=== PATIENT | male | born 1990 | race Caucasian/White ===

== ENCOUNTER 2023-06-09 21:33 | Emergency (ER) | payer OTHER, SELFPAY ==
[2023-06-09 21:38] VITALS: BP 115/74; PULSE 62; RESP 16; TEMP 36.7; O2SAT 97; BMI 33.9
[2023-06-09 22:01] LABS: Internal Control Within Normal Limits; Strep A Antigen Screen Negative
[2023-06-09 22:03] LABS: SARS-CoV-2 Ag NEGATIVE (NEGATIVE)
[2023-06-09 22:40] VITALS: BP 123/76; PULSE 67; RESP 16; TEMP 37.1; O2SAT 96
--- NOTE | 2023-06-09 22:55 | ED.URI1 ---
HPI - URI/Sore Throat General Chief Complaint: Upper Respiratory Infection Stated Complaint: FEVER, SORE THROAT Time Seen by Provider: 06/09/23 22:55 Source: patient History of Present Illness HPI Narrative: Patient presents to emergency department complaining of sore throat. Patient states on his throat started to bother him with the typical. He had nasal congestion and a fever. He had myalgias and today he felt like it was painful to swallow. He had to miss work yesterday and today. He denies any nausea, vomiting, or diarrhea. Denies any chest pain, shortness of breath. He has cough which is nonproductive. Related Data Previous Rx's Medication Instructions Recorded fluticasone propionate 50 1 spray intranasal DAILY PRN 06/09/23 mcg/actuation nasal allergy symptoms #16 grams spray,suspension (Flonase Allergy Relief) loratadine 5 mg-pseudoephedrine ER 1 tab PO DAILY PRN nasal 06/09/23 120 mg tablet,extended congestion #10 tabs release,12hr (Claritin-D 12 Hour) Allergies Allergy/AdvReac Type Severity Reaction Status Date / Time IV Contrast Allergy Severe Uncoded 06/09/23 21:37 Review of Systems ROS Status of ROS 10 or more systems reviewed and unremarkable except as noted in history and below Exam Narrative Exam Narrative: Nurses notes and vital signs reviewed and patient is not hypoxic. General: Nontoxic, Well-appearing and in no apparent distress. Skin: Warm, dry, no pallor noted. No Rash Head: Normocephalic, atraumatic. Neck: Supple, non-tender. Eye: Pupils are equal, round and EOMI. No scleral icterus. Ears, Nose, Mouth, and Throat: TM clear, no posterior oropharynx erythema, Postnasal drip noted, mild nasal mucosal hypertrophy, uvula is mid-line Oral mucosa is moist Cardiovascular: Regular Rate and Rhythm without murmur, gallop or rub. Respiratory: No accessory muscle use or respiratory distress. Lungs are clear to auscultation, no wheezing, rales or rhonchi Chest Wall: no tenderness Back: No midline thoracic or lumbar vertebral tenderness. No CVA tenderness Musculoskeletal: normal ROM, no calf or popliteal tenderness, no lower extremity edema/swelling GI: Abdomen is soft, non-distended. Normal bowel sounds. No masses appreciated. No tenderness to palpation. No rebound, guarding, or rigidity noted. Neurological: A&O x4. No cranial nerve dysfunction observed. No truncal ataxia. Moves all extremities. Sensation intact. Psychiatric: Cooperative and interactive. Normal mood and affect. Constitutional Vital Signs, click to edit/add: Last Vital Signs Temp 98.7 F 06/09/23 22:40 Pulse 67 06/09/23 22:40 Resp 16 06/09/23 22:40 BP 123/76 06/09/23 22:40 Pulse Ox 96 06/09/23 22:40 O2 Del Method Room Air 06/09/23 21:48 Course Vital Signs Vital signs: Vital Signs Temperature 98.1 F 06/09/23 21:38 Pulse Rate 62 06/09/23 21:38 Respiratory Rate 16 06/09/23 21:38 Blood Pressure 115/74 06/09/23 21:38 Pulse Oximetry 97 06/09/23 21:38 Oxygen Delivery Method Room Air 06/09/23 21:38 Temperature 98.7 F 06/09/23 22:40 Pulse Rate 67 06/09/23 22:40 Respiratory Rate 16 06/09/23 22:40 Blood Pressure 123/76 06/09/23 22:40 Pulse Oximetry 96 06/09/23 22:40 Oxygen Delivery Method Room Air 06/09/23 21:48 MDM - URI/Sore Throat MDM Narrative Medical decision making narrative: Strep testing: The 19th has to are negative. All results were discussed with patient. Patient is advised to take Flonase, and Claritin decongestant. His nontoxic. Stable for outpatient follow-up and treatment. At this time the patient is without objective evidence of an acute process requiring hospitalization or inpatient management. The patient has remained hemodynamically stable. No additional indication for emergent studies at this time. I answered all questions. Discussed discharge instructions including standard anticipatory guidance and what should prompt a return to the emergency department, including if they get worse are not getting better or develops any new or concerning symptoms. I've given them specific time frame in which to follow-up, and who to follow-up with. The patient demonstrates understanding. Patient is nontoxic and stable for discharge with outpatient follow-up. This note was created with the assistance of a speech recognition program. Although the intention is to generate documents that actually reflects the content of the visit, no guarantees can be provided that every mistake has been identified and corrected by editing. Differential Diagnosis Differential diagnosis: Likely upper respiratory infection, otitis media, sinusitis, viral infection, bronchitis, influenza and pharyngitis Lab Data Attestation: I reviewed the patient's lab results. Labs: Lab Results 06/09/23 Range/Units 21:43 SARS-CoV-2 (PCR) Negative (NEGATIVE) SARS-CoV-2 RNA (SAUNDRA) Not detected (NOT DETECTE) Streptococcus Screen Negative Discharge Plan Discharge Chief Complaint: Upper Respiratory Infection Clinical Impression: Upper respiratory infection Patient Disposition: Home, Self-Care Time of Disposition Decision: 23:21 Condition: Good Mode of Transportation: Private Vehicle Prescriptions / Home Meds: New fluticasone propionate [Flonase Allergy Relief] 50 mcg/actuation spray,suspension 1 spray intranasal DAILY PRN (Reason: allergy symptoms) Qty: 16 0RF Rx Instructions: administer into each nostril Claritin-D 12 Hour 5-120 mg tablet extended release 12 hr 1 tab PO DAILY PRN (Reason: nasal congestion) Qty: 10 0RF Instructions: Pharyngitis (ED), Upper Respiratory Infection (ED) Stand Alone Forms: Portal Instructions Referrals: Physician,Non-Staff, MD [Primary Care Provider] - 1 week Discharge Date/Time: 06/09/23 23:30
[2023-06-10 14:11] LABS: SARS-CoV-2 NAA NOT DETECTED (NOT DETECTE)
--- NOTE | 2023-06-16 09:07 | PC.NURSE ---
06/16/23 no answer wrong phone number with pt. called script into pharmacy for + step A culture reviewed and ordered 06/13/23 by Katiana Davis RN
== END 2023-06-09 23:30 | disposition home or self-care (01) ==
PROVIDERS: Emergency Provider Emergency Medicine
DX: J06.9 Acute upper respiratory infection, unspecified (principal); Z20.822 Contact with and (suspected) exposure to COVID-19
CPT/HCPCS: 87070; 87150; 87635; 87811; 87880; 99283; U0003

== ENCOUNTER 2023-10-06 17:00 | Emergency (ER) | payer OTHER, SELFPAY ==
[2023-10-06 17:06] VITALS: BP 122/60; PULSE 83; RESP 16; TEMP 37.1; O2SAT 95; BMI 32.5
[2023-10-06 17:58] LABS: Influenza Virus A Antigen Negative; Influenza Virus B Antigen Negative; Internal Control Within Normal Limits
[2023-10-06 18:25] LABS: SARS-CoV-2 Ag NEGATIVE (NEGATIVE)
[2023-10-06 18:59] VITALS: BP 134/73; PULSE 82; RESP 18; TEMP 37.3; O2SAT 99
--- NOTE | 2023-10-06 19:09 | ED_ITS ---
HPI - URI/Sore Throat General Chief Complaint: Upper Respiratory Infection Stated Complaint: headache/body ache/nausea Time Seen by Provider: 10/06/23 17:12 Source: patient Limitations: no limitations History of Present Illness HPI Narrative: Patient is a 33-year-old male presents to the emergency department for 2-day history of flulike illness. He reports mild cough and congestion, diffuse bodyaches and headache, nausea with no vomiting or diarrhea. He has not had any objective fevers. His family member was sick with influenza and a double ear infection . He has not had any medications prior to arrival. He states he came to the emergency department because he does not think he can go to work today and needs a note. Related Data Previous Rx's Medication Instructions Recorded fluticasone propionate 50 1 spray intranasal DAILY PRN 06/09/23 mcg/actuation nasal allergy symptoms #16 grams spray,suspension (Flonase Allergy Relief) loratadine 5 mg-pseudoephedrine ER 1 tab PO DAILY PRN nasal 06/09/23 120 mg tablet,extended congestion #10 tabs release,12hr (Claritin-D 12 Hour) [id number] 10 ml PO Q6H PRN cold symptoms 10/06/23 2 mg-30 mg-10 mg/5 mL oral syrup #200 mL (Bromfed DM) ondansetron 4 mg disintegrating 4 mg PO Q6H PRN nausea and 10/06/23 tablet vomiting #12 tabs Allergies Allergy/AdvReac Type Severity Reaction Status Date / Time IV Contrast Allergy Severe Uncoded 06/09/23 21:37 Review of Systems ROS Constitutional Denies: fever or chills Ears, nose, mouth, and throat Reports: nasal congestion; Denies: throat pain Cardiovascular Denies: chest pain Respiratory Reports: cough; Denies: shortness of breath Gastrointestinal Reports: nausea; Denies: vomiting or diarrhea Musculoskeletal Denies: back pain Integumentary/Breast Denies: rash Neurological Reports: headache PFSH PFSH Social History Smoking status: Current every day smoker Exam Narrative Exam Narrative: Gen.: Awake, alert, in no distress Head: Normocephalic, atraumatic ENT: Moist mucous membranes, bilateral TMs clear, cobblestoning noted in the posterior pharynx with no pharyngeal erythema or tonsillar edema. Airway widely open and patent. No trismus or drooling Respiratory: No respiratory distress, lungs clear bilaterally, no wheezing or rhonchi Cardio: Regular rate and rhythm Extremities: Moves extremities equally Psych: Normal mood and affect Neuro: No focal neuro deficit Skin: Warm, dry, intact Constitutional Vital Signs, click to edit/add: Last Vital Signs Temp 99.2 F 10/06/23 18:59 Pulse 82 10/06/23 18:59 Resp 18 10/06/23 18:59 BP 134/73 10/06/23 18:59 Pulse Ox 99 10/06/23 18:59 O2 Del Method Room Air 10/06/23 17:06 Course Vital Signs Vital signs: Vital Signs Temperature 98.8 F 10/06/23 17:06 Pulse Rate 83 10/06/23 17:06 Respiratory Rate 16 10/06/23 17:06 Blood Pressure 122/60 10/06/23 17:06 Pulse Oximetry 95 10/06/23 17:06 Oxygen Delivery Method Room Air 10/06/23 17:06 Temperature 99.2 F 10/06/23 18:59 Pulse Rate 82 10/06/23 18:59 Respiratory Rate 18 10/06/23 18:59 Blood Pressure 134/73 10/06/23 18:59 Pulse Oximetry 99 10/06/23 18:59 Oxygen Delivery Method Room Air 10/06/23 17:06 MDM - URI/Sore Throat MDM Narrative Medical decision making narrative: Negative for influenza and COVID. Vital signs are stable and he appears well- hydrated and nontoxic, exam is consistent with flulike/viral illness. Bromfed- DM and Zofran given for home. He was treated in the ER with Zofran and Decadron. Follow-up with PCP and return to the ER if symptoms change or worsen Medical Records Attestation: I reviewed the patient's medical records. Lab Data Attestation: I reviewed the patient's lab results. Labs: Lab Results 10/06/23 10/06/23 Range/Units 17:10 18:05 SARS-CoV-2 (PCR) Negative (NEGATIVE) Influenza Type A Ag Negative Influenza Type B Ag Negative Discharge Plan Discharge Chief Complaint: Upper Respiratory Infection Clinical Impression: Upper respiratory infection Patient Disposition: Home, Self-Care Time of Disposition Decision: 19:07 Condition: Good Prescriptions / Home Meds: New yomiemgdjgnkxqk-dpebsudxn-XZ [Bromfed DM] 2-30-10 mg/5 mL syrup 10 ml PO Q6H PRN (Reason: cold symptoms) Qty: 200 0RF ondansetron 4 mg tablet,disintegrating 4 mg PO Q6H PRN (Reason: nausea and vomiting) Qty: 12 0RF No Action fluticasone propionate [Flonase Allergy Relief] 50 mcg/actuation spray,suspension 1 spray intranasal DAILY PRN (Reason: allergy symptoms) Qty: 16 0RF Rx Instructions: administer into each nostril Claritin-D 12 Hour 5-120 mg tablet extended release 12 hr 1 tab PO DAILY PRN (Reason: nasal congestion) Qty: 10 0RF Instructions: Viral Syndrome (ED) Stand Alone Forms: Portal Instructions Referrals: Physician,Non-Staff, MD [Primary Care Provider] - 1 week
[2023-10-06] MEDS: DEXAMETHASONE SOD PHOS 10 MG/ML VIAL PO (19:34)
[2023-10-06] MEDS: ONDANSETRON 4 MG RAPDIS TABLET SL (19:34)
[2023-10-07 10:24] LABS: SARS-CoV-2 NAA NOT DETECTED (NOT DETECTE)
== END 2023-10-06 19:40 | disposition home or self-care (01) ==
PROVIDERS: Physician Assistant; Emergency Provider Emergency Medicine
DX: J06.9 Acute upper respiratory infection, unspecified (principal); F17.200 Nicotine dependence, unspecified, uncomplicated
CPT/HCPCS: 87635; 87804; 87811; 99284; J1100